=== PATIENT | female | born 1955 | race African-American/Black ===

== ENCOUNTER 2018-05-14 00:20 | Inpatient (IN) | payer MEDICAID ==
[~2018-05-14] VITALS: Ht 157.5 cm; Wt 51.7 kg
[2018-05-14] MEDS ORDERED: SODIUM CHLORIDE 0.9% 1,000 ML IV ONE ×2 (00:48→01:45)
[2018-05-14 01:33] LABS: BASOPHILS % 0.7 % (0.0-2.0); HEMATOCRIT. 28.9 % (36.0-48.0); HEMOGLOBIN. 8.1 g/dL (12.0-16.0); LYMPHOCYTES % 34.1 % (20.0-50.0); MEAN CORPUSCULAR HEMOGLOBIN 15.5 pg (28.0-32.0); MEAN CORPUSCULAR VOLUME 55.3 fL (81.0-99.0); MONOCYTES % 10.8 % (2.0-8.0); NEUTROPHILS % 54.4 % (40.0-76.0); RED BLOOD CELL COUNT 5.23 mill/uL (4.2-5.4)
[2018-05-14 01:38] LABS: CHLORIDE 117 mEq/L (98-107)
[2018-05-14 01:41] LABS: PARTIAL THROMBOPLASTIN TIME 27.5 sec (23.4-31.0); PROTHROMBIN TIME 10.8 sec (9.4-11.6)
[2018-05-14 01:42] LABS: AMMONIA 19 uMol/L (<32); ETHANOL BLOOD < 10 mg/dL
[2018-05-14 01:47] LABS: CREATINE KINASE 325 IU/L (26-192)
[2018-05-14] MEDS ORDERED: ASPIRIN 325MG TABLET PO ONE (02:45)
[2018-05-14 05:28] LABS: MEAN PLATELET VOLUME 9.1 fl (7.4-10.4); PLATELET 186 x1000/uL (130-400); PLATELET ESTIMATE NORMAL
[2018-05-14 10:05] VITALS: BP 128/74
[2018-05-14] MEDS ORDERED: ACETAMINOPHEN 650MG SUPP PR PRN (11:15)
[2018-05-14] MEDS ORDERED: ONDANSETRON HCL 4MG/2ML VIAL IV PRN (11:15)
[2018-05-14] MEDS ORDERED: IPRATROPIUM/ALBUTEROL 0.5-3(2.5)MG/3ML NEB INH PRN (11:15)
[2018-05-14] MEDS ORDERED: CLONIDINE 0.1MG TABLET PO PRN (11:15)
[2018-05-14 11:52] LABS: CLARITY URINE CLEAR (CLEAR); COLOR URINE YELLOW (YELLOW); KETONES URINE 2+ (NEGATIVE); LEUKOCYTE ESTERASE URINE NEGATIVE (NEGATIVE); NITRITE URINE NEGATIVE (NEGATIVE); OCCULT BLOOD URINE NEGATIVE (NEGATIVE); PH URINE 5.5 (4.5-8.0); PROTEIN URINE 1+ (NEGATIVE); SPECIFIC GRAVITY URINE 1.026 (1.005-1.030); UROBILINOGEN URINE 0.2 E.U./dL (0.2-1.0)
[2018-05-14] MEDS ORDERED: POTASSIUM CHLORIDE INJ 40 MEQ in DEXT 5% WATER 250 ML IV SCH (12:00)
[2018-05-14] MEDS ORDERED: LOSARTAN POTASSIUM 50 MG TABLET PO SCH (14:15)
[2018-05-14 15:54] LABS: *COCAINE SCREEN URINE PRESUMTIVE POSITIVE (NEGATIVE)
[2018-05-14 15:55] LABS: *AMPHETAMINES SCREEN URINE NEGATIVE (NEGATIVE); *BARBITURATES SCREEN URINE NEGATIVE (NEGATIVE); *BENZODIAZEPINES SCREEN URINE NEGATIVE (NEGATIVE); CANNABINOID URINE SCREEN NEGATIVE (NEGATIVE); OPIATES URINE SCREEN PRESUMTIVE POSITIVE (NEGATIVE); PHENCYCLIDINE URINE SCREEN NEGATIVE (NEGATIVE)
[2018-05-14 15:59] LABS: METHADONE URINE SCREEN NEGATIVE (NEGATIVE)
[2018-05-14 16:00] VITALS: BP 184/88
[2018-05-14] MEDS: ENOXAPARIN 40MG/0.4ML SYR SUBCUT SCH (16:27)
[2018-05-14 20:00] VITALS: BP 168/82
[2018-05-14] MEDS ORDERED: AMLODIPINE 5MG TABLET PO SCH (21:00)
[2018-05-14 21:11] LABS: T4 FREE 0.91 ng/dL (0.76-1.46)
[2018-05-14] MEDS: ATORVASTATIN CALCIUM 20MG TABLET PO SCH (21:27)
[2018-05-14] MEDS: LEVETIRACETAM 500MG TABLET PO SCH (21:27)
[2018-05-14 22:02] LABS: FERRITIN 8 ng/mL (10-291)
[2018-05-14 22:06] LABS: VITAMIN B12 SERUM 547 pg/mL (211-911)
[2018-05-14 22:07] LABS: FOLIC ACID (FOLATE) SERUM > 20.00 ng/mL (>5.38)
[2018-05-15] VITALS: BP 115/46
[2018-05-15 04:00] VITALS: BP 160/69
[2018-05-15] MEDS: OMEPRAZOLE 20MG CAPSULE EXTENDED RELEASE PO SCH (05:34)
[2018-05-15] MEDS: ASPIRIN 81MG TABLET PO SCH ×2 (09:00→11:33)
[2018-05-15] MEDS: LEVETIRACETAM 500MG TABLET PO SCH ×2 (09:00→21:55)
[2018-05-15] MEDS: ENOXAPARIN 40MG/0.4ML SYR SUBCUT SCH ×2 (09:00→11:32)
[2018-05-15] MEDS: NIFEDIPINE XL 60MG TAB PO SCH ×2 (11:33→21:55)
[2018-05-15 12:29] VITALS: BP 145/73
[2018-05-15] MEDS ORDERED: IRON SUCROSE COMPLEX 100 MG/5 ML ML IV NR (14:30)
[2018-05-15] MEDS: IRON SUCROSE COMPLEX 100 MG/5 ML ML IV SCH ×2 (15:00→15:29)
[2018-05-15 16:06] VITALS: BP 118/65
[2018-05-15 20:00] VITALS: BP 125/74
[2018-05-15] MEDS: ATORVASTATIN CALCIUM 20MG TABLET PO SCH (21:55)
[2018-05-16] VITALS: BP 123/76
[2018-05-16 04:00] VITALS: BP 103/73
[2018-05-16] MEDS: OMEPRAZOLE 20MG CAPSULE EXTENDED RELEASE PO SCH (06:08)
[2018-05-16 08:00] VITALS: BP 122/74
[2018-05-16] MEDS: IRON SUCROSE COMPLEX 100 MG/5 ML ML IV SCH (09:26)
[2018-05-16] MEDS: LEVETIRACETAM 500MG TABLET PO SCH ×2 (09:26→21:40)
[2018-05-16] MEDS: ASPIRIN 81MG TABLET PO SCH (09:26)
[2018-05-16] MEDS: NIFEDIPINE XL 60MG TAB PO SCH ×2 (09:26→21:40)
[2018-05-16] MEDS: ENOXAPARIN 40MG/0.4ML SYR SUBCUT SCH (09:26)
[2018-05-16 12:00] VITALS: BP 102/78
[2018-05-16 16:00] VITALS: BP 90/65
[2018-05-16] MEDS: ACETAMINOPHEN 325MG TABLET PO PRN (16:01)
[2018-05-16 20:00] VITALS: BP 121/69
[2018-05-16] MEDS: ATORVASTATIN CALCIUM 20MG TABLET PO SCH (21:40)
[2018-05-16] MEDS: DIPHENHYDRAMINE 50MG/ML VIAL IV PRN (21:45)
[2018-05-17] VITALS: BP 118/62
[2018-05-17 04:00] VITALS: BP 126/58
[2018-05-17] MEDS: OMEPRAZOLE 20MG CAPSULE EXTENDED RELEASE PO SCH (07:04)
[2018-05-17 08:00] VITALS: BP 126/75
[2018-05-17] MEDS: IRON SUCROSE COMPLEX 100 MG/5 ML ML IV SCH (09:16)
[2018-05-17] MEDS: LEVETIRACETAM 500MG TABLET PO SCH ×2 (09:16→21:46)
[2018-05-17] MEDS: NIFEDIPINE XL 60MG TAB PO SCH ×2 (09:17→21:46)
[2018-05-17] MEDS: ASPIRIN 81MG TABLET PO SCH (09:17)
[2018-05-17] MEDS: ENOXAPARIN 40MG/0.4ML SYR SUBCUT SCH (09:17)
[2018-05-17] MEDS: ACETAMINOPHEN 325MG TABLET PO PRN (09:49)
[2018-05-17 12:00] VITALS: BP 98/58
[2018-05-17 16:00] VITALS: BP 121/77
[2018-05-17 20:00] VITALS: BP 130/63
[2018-05-17] MEDS: ATORVASTATIN CALCIUM 20MG TABLET PO SCH (21:45)
[2018-05-18] VITALS (7 sets, daily range): BP systolic 114–130; BP diastolic 56–79
[2018-05-18] MEDS: OMEPRAZOLE 20MG CAPSULE EXTENDED RELEASE PO SCH (06:45)
[2018-05-18] MEDS ORDERED: IRON SUCROSE COMPLEX 100 MG/5 ML ML IV NR (09:00)
[2018-05-18] MEDS: LEVETIRACETAM 500MG TABLET PO SCH ×2 (09:16→20:27)
[2018-05-18] MEDS: ASPIRIN 81MG TABLET PO SCH (09:16)
[2018-05-18] MEDS: NIFEDIPINE XL 60MG TAB PO SCH ×2 (09:17→20:27)
[2018-05-18] MEDS: ENOXAPARIN 40MG/0.4ML SYR SUBCUT SCH (09:18)
[2018-05-18 09:51] LABS: BASOPHILS % 1.6 % (0.0-2.0); EOSINOPHILS % 2.9 % (0.0-5.0); HEMATOCRIT. 27.9 % (36.0-48.0); LYMPHOCYTES % 39.1 % (20.0-50.0); MEAN CORPUSCULAR HEMOGLOBIN 15.7 pg (28.0-32.0); MEAN CORPUSCULAR VOLUME 54.4 fL (81.0-99.0); MEAN PLATELET VOLUME 8.8 fl (7.4-10.4); MONOCYTES % 10.3 % (2.0-8.0); NEUTROPHILS % 46.1 % (40.0-76.0); PLATELET 191 x1000/uL (130-400); RED BLOOD CELL COUNT 5.12 mill/uL (4.2-5.4); RED CELL DISTRIBUTION WIDTH 21.6 % (11.6-14.6)
[2018-05-18 10:05] LABS: CHLORIDE 109 mEq/L (98-107)
[2018-05-18 10:22] LABS: PLATELET ESTIMATE NORMAL
[2018-05-18] MEDS: DIPHENHYDRAMINE 50MG/ML VIAL IV PRN (13:55)
[2018-05-18] MEDS: ACETAMINOPHEN 325MG TABLET PO PRN ×2 (13:57→20:11)
[2018-05-18] MEDS ORDERED: POTASSIUM CHLORIDE 20MEQ TABLET SR PO NR (14:15)
[2018-05-18] MEDS: ATORVASTATIN CALCIUM 20MG TABLET PO SCH (20:27)
[2018-05-19 04:00] VITALS: BP 135/53
[2018-05-19] MEDS: OMEPRAZOLE 20MG CAPSULE EXTENDED RELEASE PO SCH (06:45)
[2018-05-19 08:00] VITALS: BP 123/62
[2018-05-19] MEDS: ASPIRIN 81MG TABLET PO SCH (08:50)
[2018-05-19] MEDS: LEVETIRACETAM 500MG TABLET PO SCH ×2 (08:50→20:26)
[2018-05-19] MEDS: ENOXAPARIN 40MG/0.4ML SYR SUBCUT SCH (08:52)
[2018-05-19] MEDS: NIFEDIPINE XL 60MG TAB PO SCH ×2 (08:53→20:25)
[2018-05-19] MEDS: ACETAMINOPHEN 325MG TABLET PO PRN (10:58)
[2018-05-19] MEDS: DIPHENHYDRAMINE 50MG/ML VIAL IV PRN ×2 (10:58→23:23)
[2018-05-19 12:00] VITALS: BP 123/66
[2018-05-19] MEDS: LORAZEPAM 2MG/ML CPJ IV PRN (15:51)
[2018-05-19 16:00] VITALS: BP 128/76
[2018-05-19 20:00] VITALS: BP 153/81
[2018-05-19] MEDS: ATORVASTATIN CALCIUM 20MG TABLET PO SCH (20:19)
[2018-05-19] MEDS: QUETIAPINE FUMARATE 25MG TABLET PO SCH (20:26)
[2018-05-20] VITALS: BP 154/94
[2018-05-20] MEDS: LORAZEPAM 2MG/ML CPJ IV PRN (03:37)
[2018-05-20 04:00] VITALS: BP 142/80
[2018-05-20 06:17] LABS: BASOPHILS % 0.6 % (0.0-2.0); EOSINOPHILS % 2.2 % (0.0-5.0); HEMATOCRIT. 29.1 % (36.0-48.0); HEMOGLOBIN. 8.4 g/dL (12.0-16.0); LYMPHOCYTES % 40.4 % (20.0-50.0); MEAN CORPUSCULAR HEMOGLOBIN 16.2 pg (28.0-32.0); MEAN CORPUSCULAR VOLUME 55.9 fL (81.0-99.0); MONOCYTES % 12.7 % (2.0-8.0); NEUTROPHILS % 44.1 % (40.0-76.0); RED BLOOD CELL COUNT 5.21 mill/uL (4.2-5.4); RED CELL DISTRIBUTION WIDTH 22.5 % (11.6-14.6)
[2018-05-20] MEDS: OMEPRAZOLE 20MG CAPSULE EXTENDED RELEASE PO SCH (06:25)
[2018-05-20 06:34] LABS: CHLORIDE 110 mEq/L (98-107)
[2018-05-20 08:00] VITALS: BP 151/85
[2018-05-20] MEDS: QUETIAPINE FUMARATE 25MG TABLET PO SCH ×2 (08:31→20:32)
[2018-05-20] MEDS: NIFEDIPINE XL 60MG TAB PO SCH ×2 (08:31→20:33)
[2018-05-20] MEDS: LEVETIRACETAM 500MG TABLET PO SCH ×2 (08:31→20:32)
[2018-05-20] MEDS: ASPIRIN 81MG TABLET PO SCH (08:31)
[2018-05-20] MEDS: ENOXAPARIN 40MG/0.4ML SYR SUBCUT SCH (08:32)
[2018-05-20 08:42] LABS: PLATELET 169 x1000/uL (130-400)
[2018-05-20] MEDS: ACETAMINOPHEN 325MG TABLET PO PRN (11:28)
[2018-05-20 12:00] VITALS: BP 142/80
[2018-05-20] MEDS ORDERED: BISACODYL 5MG TABLET PO PRN (14:00)
[2018-05-20] MEDS ORDERED: BISACODYL 5MG TABLET PO NR (14:00)
[2018-05-20] MEDS ORDERED: BISACODYL 10MG SUPP PR PRN (14:00)
[2018-05-20 16:00] VITALS: BP 121/68
[2018-05-20 20:00] VITALS: BP 120/67
[2018-05-20] MEDS: ATORVASTATIN CALCIUM 20MG TABLET PO SCH (20:32)
[2018-05-21] VITALS: BP 117/67
[2018-05-21 04:00] VITALS: BP 115/67
[2018-05-21 06:20] LABS: BASOPHILS % 0.9 % (0.0-2.0); EOSINOPHILS % 2.6 % (0.0-5.0); HEMATOCRIT. 28.1 % (36.0-48.0); HEMOGLOBIN. 8.2 g/dL (12.0-16.0); LYMPHOCYTES % 41.5 % (20.0-50.0); MEAN CORPUSCULAR HEMOGLOBIN 16.3 pg (28.0-32.0); MEAN CORPUSCULAR VOLUME 55.3 fL (81.0-99.0); MONOCYTES % 8.2 % (2.0-8.0); NEUTROPHILS % 46.8 % (40.0-76.0); RED BLOOD CELL COUNT 5.07 mill/uL (4.2-5.4); RED CELL DISTRIBUTION WIDTH 22.2 % (11.6-14.6)
[2018-05-21] MEDS: OMEPRAZOLE 20MG CAPSULE EXTENDED RELEASE PO SCH (06:31)
[2018-05-21 06:33] LABS: CHLORIDE 108 mEq/L (98-107)
[2018-05-21 08:00] VITALS: BP 112/61
[2018-05-21] MEDS: ENOXAPARIN 40MG/0.4ML SYR SUBCUT SCH (09:00)
[2018-05-21] MEDS: ASPIRIN 81MG TABLET PO SCH (09:25)
[2018-05-21] MEDS: DOCUSATE SODIUM 250MG CAPSULE PO SCH (09:25)
[2018-05-21] MEDS: QUETIAPINE FUMARATE 25MG TABLET PO SCH ×2 (09:25→20:19)
[2018-05-21] MEDS: LEVETIRACETAM 500MG TABLET PO SCH ×2 (09:25→20:19)
[2018-05-21] MEDS: NIFEDIPINE XL 60MG TAB PO SCH ×2 (09:25→20:19)
[2018-05-21 12:00] VITALS: BP 94/51
[2018-05-21 12:07] LABS: MEAN PLATELET VOLUME 9.4 fl (7.4-10.4); PLATELET 164 x1000/uL (130-400)
[2018-05-21 16:00] VITALS: BP 114/85
[2018-05-21 20:00] VITALS: BP 135/78
[2018-05-21] MEDS: LORAZEPAM 2MG/ML CPJ IV PRN (20:18)
[2018-05-21] MEDS: ACETAMINOPHEN 325MG TABLET PO PRN (20:19)
[2018-05-21] MEDS: ATORVASTATIN CALCIUM 20MG TABLET PO SCH (20:19)
[2018-05-22] VITALS: BP 99/66
[2018-05-22 04:00] VITALS: BP 103/51
[2018-05-22] MEDS: OMEPRAZOLE 20MG CAPSULE EXTENDED RELEASE PO SCH (05:51)
[2018-05-22 08:00] VITALS: BP 122/72
[2018-05-22] MEDS: ASPIRIN 81MG TABLET PO SCH (08:39)
[2018-05-22] MEDS: NIFEDIPINE XL 60MG TAB PO SCH ×2 (08:39→21:29)
[2018-05-22] MEDS: LEVETIRACETAM 500MG TABLET PO SCH ×2 (08:39→21:29)
[2018-05-22] MEDS: DOCUSATE SODIUM 250MG CAPSULE PO SCH (08:39)
[2018-05-22] MEDS: QUETIAPINE FUMARATE 25MG TABLET PO SCH ×2 (08:39→21:29)
[2018-05-22] MEDS: ENOXAPARIN 40MG/0.4ML SYR SUBCUT SCH (08:45)
[2018-05-22 12:00] VITALS: BP 120/76
[2018-05-22 16:00] VITALS: BP 119/77
[2018-05-22 20:00] VITALS: BP 125/75
[2018-05-22] MEDS: ATORVASTATIN CALCIUM 20MG TABLET PO SCH (21:29)
[2018-05-23] VITALS: BP 127/68
[2018-05-23 04:00] VITALS: BP 138/59
[2018-05-23] MEDS: OMEPRAZOLE 20MG CAPSULE EXTENDED RELEASE PO SCH (05:46)
[2018-05-23] MEDS: ACETAMINOPHEN 325MG TABLET PO PRN ×2 (06:11→16:43)
[2018-05-23 08:00] VITALS: BP 109/68
[2018-05-23] MEDS: DOCUSATE SODIUM 250MG CAPSULE PO SCH (08:15)
[2018-05-23] MEDS: ASPIRIN 81MG TABLET PO SCH (08:15)
[2018-05-23] MEDS: LEVETIRACETAM 500MG TABLET PO SCH ×2 (08:15→22:06)
[2018-05-23] MEDS: QUETIAPINE FUMARATE 25MG TABLET PO SCH ×2 (08:15→22:06)
[2018-05-23] MEDS: NIFEDIPINE XL 60MG TAB PO SCH ×2 (08:16→22:06)
[2018-05-23] MEDS: ENOXAPARIN 40MG/0.4ML SYR SUBCUT SCH (08:16)
[2018-05-23 12:00] VITALS: BP 119/59
[2018-05-23 20:00] VITALS: BP 113/67
[2018-05-23] MEDS: ATORVASTATIN CALCIUM 20MG TABLET PO SCH (22:06)
[2018-05-24] VITALS: BP 138/59
[2018-05-24 04:00] VITALS: BP 137/51
[2018-05-24] MEDS: OMEPRAZOLE 20MG CAPSULE EXTENDED RELEASE PO SCH (06:37)
[2018-05-24 08:00] VITALS: BP 116/73
[2018-05-24] MEDS: QUETIAPINE FUMARATE 25MG TABLET PO SCH ×2 (08:31→20:11)
[2018-05-24] MEDS: DOCUSATE SODIUM 250MG CAPSULE PO SCH (08:31)
[2018-05-24] MEDS: NIFEDIPINE XL 60MG TAB PO SCH ×2 (08:31→20:11)
[2018-05-24] MEDS: ASPIRIN 81MG TABLET PO SCH (08:31)
[2018-05-24] MEDS: ENOXAPARIN 40MG/0.4ML SYR SUBCUT SCH (08:32)
[2018-05-24] MEDS: LEVETIRACETAM 500MG TABLET PO SCH ×2 (08:33→20:11)
[2018-05-24 12:00] VITALS: BP 126/70
[2018-05-24 16:00] VITALS: BP 121/83
[2018-05-24 20:00] VITALS: BP 115/71
[2018-05-24] MEDS: ACETAMINOPHEN 325MG TABLET PO PRN (20:10)
[2018-05-24] MEDS: ATORVASTATIN CALCIUM 20MG TABLET PO SCH (20:11)
[2018-05-25] VITALS: BP 109/59
[2018-05-25 04:00] VITALS: BP 109/59
[2018-05-25] MEDS: OMEPRAZOLE 20MG CAPSULE EXTENDED RELEASE PO SCH (07:01)
[2018-05-25 08:00] VITALS: BP 130/68
[2018-05-25] MEDS: LEVETIRACETAM 500MG TABLET PO SCH ×2 (08:24→21:58)
[2018-05-25] MEDS: DOCUSATE SODIUM 250MG CAPSULE PO SCH (08:24)
[2018-05-25] MEDS: QUETIAPINE FUMARATE 25MG TABLET PO SCH ×2 (08:24→21:58)
[2018-05-25] MEDS: ASPIRIN 81MG TABLET PO SCH (08:24)
[2018-05-25] MEDS: NIFEDIPINE XL 60MG TAB PO SCH ×2 (08:25→21:58)
[2018-05-25] MEDS: ENOXAPARIN 40MG/0.4ML SYR SUBCUT SCH (08:26)
[2018-05-25 12:00] VITALS: BP 116/69
[2018-05-25] MEDS: ACETAMINOPHEN 325MG TABLET PO PRN (13:24)
[2018-05-25 16:00] VITALS: BP 121/70
[2018-05-25 20:00] VITALS: BP 126/75
[2018-05-25] MEDS: ATORVASTATIN CALCIUM 20MG TABLET PO SCH (21:58)
[2018-05-26] VITALS: BP 103/59
[2018-05-26 04:00] VITALS: BP 108/64
[2018-05-26] MEDS: OMEPRAZOLE 20MG CAPSULE EXTENDED RELEASE PO SCH (06:03)
[2018-05-26 08:00] VITALS: BP 118/69
[2018-05-26] MEDS: NIFEDIPINE XL 60MG TAB PO SCH ×2 (08:52→20:13)
[2018-05-26] MEDS: DOCUSATE SODIUM 250MG CAPSULE PO SCH (08:52)
[2018-05-26] MEDS: ASPIRIN 81MG TABLET PO SCH (08:53)
[2018-05-26] MEDS: QUETIAPINE FUMARATE 25MG TABLET PO SCH ×2 (08:53→20:13)
[2018-05-26] MEDS: LEVETIRACETAM 500MG TABLET PO SCH ×2 (08:53→20:13)
[2018-05-26] MEDS: ENOXAPARIN 40MG/0.4ML SYR SUBCUT SCH (08:53)
[2018-05-26 12:00] VITALS: BP 117/76
[2018-05-26 12:31] LABS: BASOPHILS % 0.8 % (0.0-2.0); EOSINOPHILS % 1.8 % (0.0-5.0); HEMOGLOBIN. 8.4 g/dL (12.0-16.0); LYMPHOCYTES % 30.4 % (20.0-50.0); MEAN CORPUSCULAR HEMOGLOBIN 16.9 pg (28.0-32.0); MEAN CORPUSCULAR VOLUME 58.2 fL (81.0-99.0); MEAN PLATELET VOLUME 9.8 fl (7.4-10.4); MONOCYTES % 7.9 % (2.0-8.0); NEUTROPHILS % 59.1 % (40.0-76.0); RED BLOOD CELL COUNT 4.99 mill/uL (4.2-5.4); RED CELL DISTRIBUTION WIDTH 27.8 % (11.6-14.6)
[2018-05-26 13:21] LABS: CHLORIDE 107 mEq/L (98-107)
[2018-05-26 13:41] LABS: PLATELET ESTIMATE NORMAL
[2018-05-26 13:42] LABS: PLATELET 148 x1000/uL (130-400)
[2018-05-26 16:00] VITALS: BP 123/75
[2018-05-26] MEDS: ATORVASTATIN CALCIUM 20MG TABLET PO SCH (20:13)
[2018-05-26 20:49] VITALS: BP 127/76
[2018-05-27 05:01] VITALS: BP 101/64
[2018-05-27] MEDS: OMEPRAZOLE 20MG CAPSULE EXTENDED RELEASE PO SCH ×2 (06:18→06:19)
[2018-05-27 07:03] LABS: BASOPHILS % 0.5 % (0.0-2.0); EOSINOPHILS % 2.6 % (0.0-5.0); HEMOGLOBIN. 8.9 g/dL (12.0-16.0); LYMPHOCYTES % 29.4 % (20.0-50.0); MEAN CORPUSCULAR VOLUME 58.6 fL (81.0-99.0); MONOCYTES % 7.7 % (2.0-8.0); NEUTROPHILS % 59.8 % (40.0-76.0); RED BLOOD CELL COUNT 4.94 mill/uL (4.2-5.4); RED CELL DISTRIBUTION WIDTH 27.4 % (11.6-14.6)
[2018-05-27 07:10] LABS: CHLORIDE 108 mEq/L (98-107)
[2018-05-27 08:00] VITALS: BP 119/64
[2018-05-27] MEDS: ASPIRIN 81MG TABLET PO SCH (08:24)
[2018-05-27] MEDS: LEVETIRACETAM 500MG TABLET PO SCH ×2 (08:24→20:06)
[2018-05-27] MEDS: DOCUSATE SODIUM 250MG CAPSULE PO SCH (08:24)
[2018-05-27] MEDS: QUETIAPINE FUMARATE 25MG TABLET PO SCH ×2 (08:24→20:06)
[2018-05-27] MEDS: ENOXAPARIN 40MG/0.4ML SYR SUBCUT SCH (08:25)
[2018-05-27] MEDS: NIFEDIPINE XL 60MG TAB PO SCH ×2 (08:25→20:06)
[2018-05-27 08:30] LABS: PLATELET 155 x1000/uL (130-400)
[2018-05-27 08:31] LABS: MEAN PLATELET VOLUME 10.3 fl (7.4-10.4)
[2018-05-27 12:00] VITALS: BP 121/70
[2018-05-27 16:00] VITALS: BP 125/75
[2018-05-27 18:04] VITALS: BP 125/75
[2018-05-27 20:00] VITALS: BP 133/75
[2018-05-27] MEDS: ATORVASTATIN CALCIUM 20MG TABLET PO SCH (20:06)
== END 2018-05-27 21:10 | DRG 45 ==
LOC: ER 00:20 → EDBEDREQ 02:46 → 5WST 02:46 → EDBEDREQSVC 02:46 → ENRESERV 07:39
PROVIDERS: ADMIT Internal Medicine; ATTEND Internal Medicine
DX: I63.9 Cerebral infarction, unspecified (principal); I21.4 Non-ST elevation (NSTEMI) myocardial infarction; G82.50 Quadriplegia, unspecified; G93.40 Encephalopathy, unspecified; R13.10 Dysphagia, unspecified; E87.0 Hyperosmolality and hypernatremia; I27.20 Pulmonary hypertension, unspecified; F14.10 Cocaine abuse, uncomplicated; D50.9 Iron deficiency anemia, unspecified; I10 Essential (primary) hypertension; J44.9 Chronic obstructive pulmonary disease, unspecified; E87.6 Hypokalemia; G40.909 Epilepsy, unspecified, not intractable, without status epilepticus; G81.94 Hemiplegia, unspecified affecting left nondominant side; R47.1 Dysarthria and anarthria; R26.9 Unspecified abnormalities of gait and mobility; E78.00 Pure hypercholesterolemia, unspecified; F12.10 Cannabis abuse, uncomplicated; R41.4 Neurologic neglect syndrome; H54.7 Unspecified visual loss; H53.469 Homonymous bilateral field defects, unspecified side; F10.10 Alcohol abuse, uncomplicated; Y90.9 Presence of alcohol in blood, level not specified; F17.200 Nicotine dependence, unspecified, uncomplicated; R47.01 Aphasia; Z53.20 Procedure and treatment not carried out because of patient's decision for unspecified reasons; Z79.899 Other long term (current) drug therapy; Z79.82 Long term (current) use of aspirin
CPT/HCPCS: 36415; 70450; 70544; 70551; 71045; 80048; 80053; 80061; 80305; 80307; 80329; 81003; 82140; 82550; 82607; 82728; 82746; 83036; 83540; 83550; 83605; 83690; 83880; 84439; 84443; 84481; 84484; 85025; 85610; 85730; 86850; 86900; 92523; 92610; 93005; 93306; 93880; 93970; 96360; 97110; 97112; 97116; 97163; 97164; 97167; 97530; 97535; 99285; G0482; J1200; J1650; J2060; J3480; J7030; J7060; A4315

== ENCOUNTER 2021-01-12 03:04 | Emergency (ER) | payer MEDICAID, MEDICARE ==
[~2021-01-12] VITALS: Ht 157.5 cm; Wt 50.0 kg
[2021-01-12] MEDS ORDERED: KETOROLAC 60MG/2ML VIAL IM ONE (03:30)
[2021-01-12] MEDS ORDERED: LIDOCAINE 5% PATCH TOP SCH (03:30)
[2021-01-12] MEDS ORDERED: LIDO700A30 TP (03:56)
[2021-01-12] MEDS ORDERED: IBUP-2029 MT (03:56)
[2021-01-12 04:20] VITALS: BP 145/76
== END 2021-01-12 04:25 | disposition home or self-care (01) ==
LOC: ER 03:04
DX: M54.9 Dorsalgia, unspecified (principal); G89.29 Other chronic pain; I10 Essential (primary) hypertension; R56.9 Unspecified convulsions; Z86.73 Personal history of transient ischemic attack (TIA), and cerebral infarction without residual deficits
CPT/HCPCS: 93005; 96372; 99283; J1885